=== PATIENT | female | born 1935 | race Caucasian/White ===

== ENCOUNTER 2018-04-19 03:32 | Emergency (ER) | payer MEDICARE ==
[~2018-04-19] VITALS: Ht 167.6 cm; Wt 84.0 kg
[~2018-04-19 03:32] MED LIST: ALBU6.7H INH; ASPI-1009 PO; CHOL100010 PO; ESOM20CA PO; GUAI600T45 PO; HYDR-3964 PF; LEVO50TA67 PO; NITR0.4T51 SL; OLME1TAB21 PO; POTASSIUM CHLORIDE PO; SULF-14 PO
[2018-04-19] MEDS ORDERED: normal saline 1000ML IV soln IVB ONE (03:50)
[2018-04-19] MEDS ORDERED: furosemide 10 MG/1 ML 10ml inj IV ONE (04:20)
[2018-04-19 04:27] LABS: BASOPHILS % (AUTO) 0.3 % (0-1); EOSINOPHILS # (AUTO) 0.2 X10'3 (0-0.9); EOSINOPHILS % (AUTO) 3.3 % (0-6); HEMATOCRIT 35.6 % (35.0-45.0); HEMOGLOBIN 12.4 g/dl (12.0-16.0); LYMPHOCYTES # (AUTO) 1.8 X10'3 (1.1-4.8); LYMPHOCYTES % (AUTO) 26.1 % (21-51); MEAN CORPUSCULAR HEMOGLOBIN 32.6 PG (27.0-31.0); MEAN CORPUSCULAR HGB CONC 34.8 % (33.0-36.5); MEAN CORPUSCULAR VOLUME 93.7 FL (78-98); MEAN PLATELET VOLUME 9.8 FL (7.4-10.4); MONOCYTES # (AUTO) 0.6 X10'3 (0-0.9); MONOCYTES % (AUTO) 7.9 % (2-12); NEUTROPHILS # (AUTO) 4.4 X10'3 (1.8-7.7); NEUTROPHILS % (AUTO) 62.4 % (42-75); PLATELET COUNT 198 X10'3 (140-440); RED CELL DISTRIBUTION WIDTH 13.2 % (11.5-14.5)
[2018-04-19 04:30] LABS: CLARITY,URINE CLEAR (Clear); COLOR,URINE YELLOW (Yellow); GLUCOSE, URINE NEGATIVE (Neg); KETONES,URINE TRACE mg/dl (Neg); LEUKOCYTE ESTERASE ,URINE NEGATIVE (Neg); NITRITES, URINE NEGATIVE (Neg); OCCULT BLOOD,URINE NEGATIVE (Neg); PH,URINE 6.5 (4.8-8.0); PROTEIN,URINE NEGATIVE (Neg); UROBILINOGEN,URINE 0.2 E.U/dL (0.2-1.0)
[2018-04-19 04:37] LABS: UA COLLECTION TYPE STRAIGHT CATH
[2018-04-19 04:43] LABS: ALANINE AMINOTRANSFERASE 19 U/L (12-78); ALBUMIN 3.5 G/DL (3.4-5.0); ALKALINE PHOSPHATASE 117 IU/L (46-116); ANION GAP 8 (8-16); ASPARTATE AMINO TRANSFERASE 14 U/L (10-37); BILIRUBIN,TOTAL 0.4 MG/DL (0.1-1.0); BLOOD UREA NITROGEN 25 MG/DL (7-18); BUN/CREATININE RATIO 27.5 (6.6-38.0); CALCIUM 9.1 MG/DL (8.5-10.1); CHLORIDE 105 MMOL/L (99-107); CREATININE 0.91 MG/DL (0.40-0.90); GLUCOSE 123 MG/DL (70-104); POTASSIUM 3.6 MMOL/L (3.5-5.1); SODIUM 140 MMOL/L (135-145); TOTAL CARBON DIOXIDE 26.7 MMOL/L (24-32); eGFR 59 ML/MIN
[2018-04-19 04:45] LABS: TROPONIN I < 0.04 NG/ML (0.0-0.05)
[2018-04-19 05:06] VITALS: BP 157/69
== END 2018-04-19 06:15 | disposition home or self-care (01) ==
LOC: ER 03:32
DX: R53.1 Weakness (principal); R41.0 Disorientation, unspecified; R10.12 Left upper quadrant pain; K59.00 Constipation, unspecified; H92.02 Otalgia, left ear; I10 Essential (primary) hypertension; K21.9 Gastro-esophageal reflux disease without esophagitis; E11.9 Type 2 diabetes mellitus without complications; Z85.038 Personal history of other malignant neoplasm of large intestine; Z90.710 Acquired absence of both cervix and uterus; Z90.49 Acquired absence of other specified parts of digestive tract; Z98.890 Other specified postprocedural states; Z60.2 Problems related to living alone; Z88.8 Allergy status to other drugs, medicaments and biological substances; Z79.82 Long term (current) use of aspirin; Z79.899 Other long term (current) drug therapy
CPT/HCPCS: 36415; 71045; 80053; 81003; 84484; 85025; 93005; 96360; 99285; A4353; J7030

== ENCOUNTER 2018-04-28 08:40 | Emergency (ER) | payer MEDICARE ==
[~2018-04-28] VITALS: Ht 167.6 cm; Wt 81.8 kg
[2018-04-28] MEDS ORDERED: normal saline 1000ML IV soln IVB ONE (09:15)
[2018-04-28] MEDS ORDERED: ondansetron/PF 4mg/2ml inj IV ONE (09:15)
[2018-04-28 09:20] LABS: BASOPHILS % (AUTO) 0.4 % (0-1); EOSINOPHILS # (AUTO) 0.1 X10'3 (0-0.9); EOSINOPHILS % (AUTO) 1.8 % (0-6); HEMATOCRIT 38.1 % (35.0-45.0); HEMOGLOBIN 13.2 g/dl (12.0-16.0); LYMPHOCYTES # (AUTO) 1.2 X10'3 (1.1-4.8); LYMPHOCYTES % (AUTO) 19.8 % (21-51); MEAN CORPUSCULAR HEMOGLOBIN 32.3 PG (27.0-31.0); MEAN CORPUSCULAR HGB CONC 34.7 % (33.0-36.5); MEAN CORPUSCULAR VOLUME 93.2 FL (78-98); MEAN PLATELET VOLUME 9.8 FL (7.4-10.4); MONOCYTES # (AUTO) 0.4 X10'3 (0-0.9); MONOCYTES % (AUTO) 6.8 % (2-12); NEUTROPHILS # (AUTO) 4.2 X10'3 (1.8-7.7); NEUTROPHILS % (AUTO) 71.2 % (42-75); PLATELET COUNT 197 X10'3 (140-440); RED BLOOD COUNT 4.09 X10'6 (4.20-5.60); RED CELL DISTRIBUTION WIDTH 13.1 % (11.5-14.5)
[2018-04-28 09:31] LABS: ALANINE AMINOTRANSFERASE 18 U/L (12-78); ALBUMIN 3.6 G/DL (3.4-5.0); ALBUMIN/GLOBULIN RATIO 0.8 (1.1-1.5); ALKALINE PHOSPHATASE 121 IU/L (46-116); ANION GAP 13 (8-16); ASPARTATE AMINO TRANSFERASE 15 U/L (10-37); BILIRUBIN,TOTAL 0.7 MG/DL (0.1-1.0); BLOOD UREA NITROGEN 18 MG/DL (7-18); BUN/CREATININE RATIO 18.4 (6.6-38.0); CHLORIDE 102 MMOL/L (99-107); CREATININE 0.98 MG/DL (0.40-0.90); GLUCOSE 149 MG/DL (70-104); LIPASE 124 U/L (73-393); POTASSIUM 3.5 MMOL/L (3.5-5.1); SODIUM 140 MMOL/L (135-145); TOTAL CARBON DIOXIDE 25.1 MMOL/L (24-32); eGFR 54 ML/MIN
[2018-04-28 09:35] LABS: CALCIUM 9.1 MG/DL (8.5-10.1)
[2018-04-28] MEDS ORDERED: iohexol 350MG/ML 100ml bottle IV ONE (09:54)
[2018-04-28 09:57] LABS: CLARITY,URINE SLIGHTLY CLOUDY (Clear); COLOR,URINE STRAW (Yellow); GLUCOSE, URINE NEGATIVE (Neg); KETONES,URINE TRACE mg/dl (Neg); LEUKOCYTE ESTERASE ,URINE TRACE (Neg); NITRITES, URINE NEGATIVE (Neg); OCCULT BLOOD,URINE TRACE-LYSED (Neg); PROTEIN,URINE NEGATIVE (Neg); UROBILINOGEN,URINE 0.2 E.U/dL (0.2-1.0)
[2018-04-28 10:03] LABS: UA COLLECTION TYPE CLN CATCH MIDSTREAM
[2018-04-28 10:05] LABS: BACTERIA,URINE FEW /HPF (Neg); RBC,URINE 0-2 /HPF (0-2); SQUAMOUS EPITHELIAL CELL,UR MODERATE /LPF (FEW)
[2018-04-28] MEDS ORDERED: POLY17PO10 PO (11:54)
[2018-04-28 12:52] VITALS: BP 128/78
== END 2018-04-28 12:53 | disposition home or self-care (01) ==
LOC: ER 08:41
DX: G89.29 Other chronic pain (principal); R10.84 Generalized abdominal pain; R11.10 Vomiting, unspecified; R63.4 Abnormal weight loss; I10 Essential (primary) hypertension; K21.9 Gastro-esophageal reflux disease without esophagitis; E11.9 Type 2 diabetes mellitus without complications; Z90.710 Acquired absence of both cervix and uterus; Z90.49 Acquired absence of other specified parts of digestive tract; Z98.890 Other specified postprocedural states; Z60.2 Problems related to living alone; Z85.038 Personal history of other malignant neoplasm of large intestine; Z88.6 Allergy status to analgesic agent; Z79.82 Long term (current) use of aspirin; Z79.899 Other long term (current) drug therapy; Z68.29 Body mass index [BMI] 29.0-29.9, adult
CPT/HCPCS: 36415; 80053; 81001; 83690; 85025; 87088; 96361; 96374; 99284; J2405; J7030; Q9967

== ENCOUNTER 2018-06-10 08:45 | Inpatient (IN) | payer MEDICARE ==
[2018-06-10] VITALS (11 sets, daily range): BP systolic 113–149; BP diastolic 54–77
[~2018-06-10] VITALS: Ht 167.6 cm; Wt 85.0 kg
[~2018-06-10 08:45] MED LIST changes: -ALBU6.7H INH; -CHOL100010 PO; -ESOM20CA PO; -GUAI600T45 PO; -LEVO50TA67 PO; -POTASSIUM CHLORIDE PO; -SULF-14 PO
[2018-06-10] MEDS ORDERED: aspirin 81mg tab.chew PO ONE (09:00)
[2018-06-10 09:25] LABS: BASOPHILS % (AUTO) 0.2 % (0-1); EOSINOPHILS # (AUTO) 0.1 X10'3 (0-0.9); EOSINOPHILS % (AUTO) 2.4 % (0-6); HEMATOCRIT 35.9 % (35.0-45.0); HEMOGLOBIN 12.3 g/dl (12.0-16.0); LYMPHOCYTES # (AUTO) 1.6 X10'3 (1.1-4.8); MEAN CORPUSCULAR HEMOGLOBIN 32.3 PG (27.0-31.0); MEAN CORPUSCULAR HGB CONC 34.3 % (33.0-36.5); MEAN CORPUSCULAR VOLUME 94.2 FL (78-98); MEAN PLATELET VOLUME 9.3 FL (7.4-10.4); MONOCYTES # (AUTO) 0.4 X10'3 (0-0.9); MONOCYTES % (AUTO) 7.9 % (2-12); NEUTROPHILS % (AUTO) 58.5 % (42-75); PLATELET COUNT 215 X10'3 (140-440); RED BLOOD COUNT 3.82 X10'6 (4.20-5.60); RED CELL DISTRIBUTION WIDTH 13.3 % (11.5-14.5); WHITE BLOOD COUNT 5.1 X10'3 (4.5-11.0)
[2018-06-10 09:40] LABS: ALANINE AMINOTRANSFERASE 17 U/L (12-78); ALBUMIN 3.3 G/DL (3.4-5.0); ALBUMIN/GLOBULIN RATIO 0.9 (1.1-1.5); ALKALINE PHOSPHATASE 113 IU/L (46-116); ANION GAP 10 (8-16); ASPARTATE AMINO TRANSFERASE 18 U/L (10-37); BILIRUBIN,TOTAL 0.5 MG/DL (0.1-1.0); BLOOD UREA NITROGEN 22 MG/DL (7-18); BUN/CREATININE RATIO 27.5 (6.6-38.0); CALCIUM 8.6 MG/DL (8.5-10.1); CHLORIDE 105 MMOL/L (99-107); GLUCOSE 138 MG/DL (70-104); POTASSIUM 3.8 MMOL/L (3.5-5.1); SODIUM 142 MMOL/L (135-145); TOTAL CARBON DIOXIDE 26.7 MMOL/L (24-32); TOTAL PROTEIN 6.8 G/DL (6.4-8.2); eGFR 68 ML/MIN
[2018-06-10 09:48] LABS: MAGNESIUM 1.9 MG/DL (1.5-2.4)
[2018-06-10] MEDS ORDERED: magnesium hydroxide 30ml (MOM) UD suspension PO PRN (10:55)
[2018-06-10] MEDS ORDERED: ondansetron/PF 4mg/2ml inj IV PRN (10:55)
[2018-06-10] MEDS ORDERED: morphine 2 MG/ML inj. syringe IV PRN ×2 (10:55)
[2018-06-10] MEDS ORDERED: acetaminophen 325mg tablet PO PRN (10:55)
[2018-06-10] MEDS ORDERED: mag hydrox/Alum hydrox/simeth 30ml oral suspension PO PRN (10:55)
[2018-06-10] MEDS: normal saline 1000ml 1,000 ML IV SCH ×2 (11:16→20:52)
[2018-06-10] MEDS ORDERED: LOSA25TA96 PO (11:20)
[2018-06-10] MEDS ORDERED: TRAM50TA2 PO (11:21)
[2018-06-10] MEDS ORDERED: traMADol 50MG tablet PO PRN (12:15)
[2018-06-10] MEDS ORDERED: nitroGLYCERIN 0.4mg SUBLingual tab SL PRN (12:15)
[2018-06-10] MEDS ORDERED: hydrALAZINE 20mg/ml inj. IV PRN (14:55)
[2018-06-10] MEDS ORDERED: LIDOcaine 1% 30ml preserv. free vial ONE (16:09)
[2018-06-10] MEDS ORDERED: iohexol 350MG/ML 100ml bottle IV ONE (16:10)
[2018-06-10] MEDS ORDERED: midazolam 2 mg/2 ml injection ONE (16:38)
[2018-06-10] MEDS ORDERED: proCHLORperazine 10 MG/2 ml inj IV PRN (18:00)
[2018-06-10] MEDS ORDERED: OXAZEpam 15mg capsule PO PRN (18:00)
[2018-06-10] MEDS ORDERED: normal saline 1000ml 1,000 ML IV SCH (18:00)
[2018-06-10] MEDS ORDERED: heparin, porcine 5000 units/ml vial SQ SCH (20:00)
[2018-06-10] MEDS: carVEDilol 3.125mg tablet PO SCH (22:03)
[2018-06-11 03:00] VITALS: BP 134/66
[2018-06-11 05:30] LABS: BASOPHILS % (AUTO) 0.5 % (0-1); EOSINOPHILS # (AUTO) 0.2 X10'3 (0-0.9); EOSINOPHILS % (AUTO) 3.9 % (0-6); HEMATOCRIT 35.1 % (35.0-45.0); HEMOGLOBIN 12.1 g/dl (12.0-16.0); LYMPHOCYTES # (AUTO) 1.4 X10'3 (1.1-4.8); LYMPHOCYTES % (AUTO) 22.6 % (21-51); MEAN CORPUSCULAR HEMOGLOBIN 32.4 PG (27.0-31.0); MEAN CORPUSCULAR HGB CONC 34.4 % (33.0-36.5); MEAN CORPUSCULAR VOLUME 94.3 FL (78-98); MEAN PLATELET VOLUME 10.3 FL (7.4-10.4); MONOCYTES # (AUTO) 0.5 X10'3 (0-0.9); MONOCYTES % (AUTO) 8.4 % (2-12); NEUTROPHILS # (AUTO) 4.1 X10'3 (1.8-7.7); NEUTROPHILS % (AUTO) 64.6 % (42-75); PLATELET COUNT 202 X10'3 (140-440); RED BLOOD COUNT 3.72 X10'6 (4.20-5.60); RED CELL DISTRIBUTION WIDTH 13.4 % (11.5-14.5); WHITE BLOOD COUNT 6.4 X10'3 (4.5-11.0)
[2018-06-11 06:00] VITALS: BP 145/72
[2018-06-11 06:05] LABS: ALBUMIN 3.1 G/DL (3.4-5.0); ANION GAP 9 (8-16); BLOOD UREA NITROGEN 24 MG/DL (7-18); BUN/CREATININE RATIO 32.4 (6.6-38.0); CALCIUM 8.4 MG/DL (8.5-10.1); CHLORIDE 106 MMOL/L (99-107); CHOL/HDL RATIO 1.9 (0.00-4.99); CHOLESTEROL 168 MG/DL (0-200); CREATININE 0.74 MG/DL (0.40-0.90); GLUCOSE 105 MG/DL (70-104); HDL CHOLESTEROL 88 MG/DL (35-60); LDL CHOLESTEROL 81 MG/DL (50-100); SODIUM 141 MMOL/L (135-145); TOTAL CARBON DIOXIDE 25.7 MMOL/L (24-32); TRIGLYCERIDES 66 MG/DL (20-135); eGFR 75 ML/MIN
[2018-06-11 06:06] LABS: POTASSIUM 4.1 MMOL/L (3.5-5.1)
[2018-06-11] MEDS: carVEDilol 3.125mg tablet PO SCH (07:51)
[2018-06-11] MEDS ORDERED: aspirin 81mg tablet.DR PO SCH (08:00)
[2018-06-11] MEDS ORDERED: losartan 50mg tablet PO SCH (08:00)
[2018-06-11] MEDS ORDERED: atorvastatin 20mg tablet PO SCH (08:00)
[2018-06-11 11:00] VITALS: BP 153/77
[2018-06-11] MEDS ORDERED: PANT-47 PO (13:19)
== END 2018-06-11 14:00 | disposition home or self-care (01) | DRG 287 ==
LOC: ER 08:46 → ED HOLD 10:52 → PCU 3S 16:25
PROVIDERS: ADMIT Family Medicine; ATTEND Family Medicine
PROC: 4A023N7 Measurement of Cardiac Sampling and Pressure, Left Heart, Percutaneous Approach (ICD-10-PCS; principal; 2018-06-10)
PROC: B2111ZZ Fluoroscopy of Multiple Coronary Arteries using Low Osmolar Contrast (ICD-10-PCS; 2018-06-10)
PROC: B2151ZZ Fluoroscopy of Left Heart using Low Osmolar Contrast (ICD-10-PCS; 2018-06-10)
DX: I25.110 Atherosclerotic heart disease of native coronary artery with unstable angina pectoris (principal); E03.9 Hypothyroidism, unspecified; E11.22 Type 2 diabetes mellitus with diabetic chronic kidney disease; E78.5 Hyperlipidemia, unspecified; I12.9 Hypertensive chronic kidney disease with stage 1 through stage 4 chronic kidney disease, or unspecified chronic kidney disease; K21.9 Gastro-esophageal reflux disease without esophagitis; N18.9 Chronic kidney disease, unspecified; Z60.2 Problems related to living alone; Z90.49 Acquired absence of other specified parts of digestive tract; Z91.041 Radiographic dye allergy status; Z88.8 Allergy status to other drugs, medicaments and biological substances; Z85.038 Personal history of other malignant neoplasm of large intestine; Z87.440 Personal history of urinary (tract) infections; Z90.710 Acquired absence of both cervix and uterus
CPT/HCPCS: 36415; 71045; 80048; 80053; 80061; 83735; 83880; 84484; 85025; 87070; 93005; 93306; 93458; 99152; 99153; 99283; 99285; A4620; A6257; C1769; J0360; J1644; J2250; J3490; J7030; Q9967

== ENCOUNTER 2018-06-21 09:59 | Emergency (ER) | payer MEDICARE ==
[~2018-06-21] VITALS: Ht 167.6 cm; Wt 81.0 kg
[~2018-06-21 09:59] MED LIST changes: -HYDR-3964 PF; +LOSA25TA96 PO; -OLME1TAB21 PO; +PANT-47 PO; +TRAM50TA2 PO
[2018-06-21] MEDS ORDERED: sucralfate 1gm/10ml UD suspension PO ONE (10:15)
[2018-06-21] MEDS ORDERED: mag hydrox/Alum hydrox/simeth 30ml oral suspension PO ONE (10:15)
[2018-06-21] MEDS ORDERED: LIDOcaine Viscous 15ml cup MM PRN (10:15)
[2018-06-21] MEDS ORDERED: pantoprazole 40 MG vial IV ONE (10:20)
[2018-06-21] MEDS ORDERED: famotidine/PF 10 mg/ml inj IV ONE (10:20)
[2018-06-21 10:27] LABS: BASOPHILS % (AUTO) 0.3 % (0-1); EOSINOPHILS # (AUTO) 0.1 X10'3 (0-0.9); EOSINOPHILS % (AUTO) 1.2 % (0-6); HEMATOCRIT 37.1 % (35.0-45.0); HEMOGLOBIN 12.8 g/dl (12.0-16.0); LYMPHOCYTES # (AUTO) 1.3 X10'3 (1.1-4.8); LYMPHOCYTES % (AUTO) 24.4 % (21-51); MEAN CORPUSCULAR HEMOGLOBIN 32.5 PG (27.0-31.0); MEAN CORPUSCULAR HGB CONC 34.4 % (33.0-36.5); MEAN CORPUSCULAR VOLUME 94.4 FL (78-98); MEAN PLATELET VOLUME 9.1 FL (7.4-10.4); MONOCYTES # (AUTO) 0.4 X10'3 (0-0.9); MONOCYTES % (AUTO) 7.6 % (2-12); NEUTROPHILS # (AUTO) 3.5 X10'3 (1.8-7.7); NEUTROPHILS % (AUTO) 66.5 % (42-75); PLATELET COUNT 233 X10'3 (140-440); RED BLOOD COUNT 3.93 X10'6 (4.20-5.60); WHITE BLOOD COUNT 5.2 X10'3 (4.5-11.0)
[2018-06-21 10:41] LABS: ALANINE AMINOTRANSFERASE 21 U/L (12-78); ALBUMIN 3.6 G/DL (3.4-5.0); ALKALINE PHOSPHATASE 118 IU/L (46-116); ANION GAP 14 (8-16); ASPARTATE AMINO TRANSFERASE 18 U/L (10-37); BILIRUBIN,TOTAL 0.6 MG/DL (0.1-1.0); BLOOD UREA NITROGEN 23 MG/DL (7-18); BUN/CREATININE RATIO 27.4 (6.6-38.0); CALCIUM 8.8 MG/DL (8.5-10.1); CHLORIDE 104 MMOL/L (99-107); CREATININE 0.84 MG/DL (0.40-0.90); GLUCOSE 128 MG/DL (70-104); LIPASE 139 U/L (73-393); POTASSIUM 3.6 MMOL/L (3.5-5.1); SODIUM 143 MMOL/L (135-145); TOTAL CARBON DIOXIDE 25.4 MMOL/L (24-32); TOTAL PROTEIN 7.2 G/DL (6.4-8.2); eGFR 65 ML/MIN
[2018-06-21] MEDS ORDERED: ondansetron/PF 4mg/2ml inj IV ONE (11:10)
[2018-06-21] MEDS ORDERED: normal saline 1000ML IV soln IVB ONE (11:10)
[2018-06-21] MEDS ORDERED: diatrozoate meglu/diatrozoate sod (37% iodine) 120ML oral solution PO ONE (11:45)
[2018-06-21] MEDS: diatr meglu/diatrizoate 30ml oral sol.-(3 dose) bottle PO SCH ×3 (12:03→13:37)
[2018-06-21 14:16] VITALS: BP 92/73
== END 2018-06-21 16:45 | disposition home or self-care (01) ==
LOC: ER 09:59
DX: R10.32 Left lower quadrant pain (principal); R10.84 Generalized abdominal pain; I10 Essential (primary) hypertension; K21.9 Gastro-esophageal reflux disease without esophagitis; E11.9 Type 2 diabetes mellitus without complications; Z90.710 Acquired absence of both cervix and uterus; Z98.890 Other specified postprocedural states; Z90.49 Acquired absence of other specified parts of digestive tract; Z85.038 Personal history of other malignant neoplasm of large intestine; Z79.82 Long term (current) use of aspirin; Z79.899 Other long term (current) drug therapy
CPT/HCPCS: 36415; 71045; 74176; 80053; 83605; 83690; 84484; 85025; 93005; 96374; 96375; 99285; C9113; J3490; Q9963

== ENCOUNTER 2018-06-26 08:36 | Observation (INO) | payer MEDICARE ==
[~2018-06-26] VITALS: Ht 167.6 cm; Wt 78.9 kg
[2018-06-26 09:22] LABS: BASOPHILS % (AUTO) 0.4 % (0-1); EOSINOPHILS # (AUTO) 0.1 X10'3 (0-0.9); EOSINOPHILS % (AUTO) 2.1 % (0-6); HEMATOCRIT 36.3 % (35.0-45.0); HEMOGLOBIN 12.7 g/dl (12.0-16.0); LYMPHOCYTES # (AUTO) 1.2 X10'3 (1.1-4.8); LYMPHOCYTES % (AUTO) 19.6 % (21-51); MEAN CORPUSCULAR HGB CONC 34.9 % (33.0-36.5); MEAN CORPUSCULAR VOLUME 94.4 FL (78-98); MEAN PLATELET VOLUME 9.7 FL (7.4-10.4); MONOCYTES # (AUTO) 0.4 X10'3 (0-0.9); MONOCYTES % (AUTO) 6.6 % (2-12); NEUTROPHILS # (AUTO) 4.4 X10'3 (1.8-7.7); NEUTROPHILS % (AUTO) 71.3 % (42-75); PLATELET COUNT 202 X10'3 (140-440); RED BLOOD COUNT 3.85 X10'6 (4.20-5.60); RED CELL DISTRIBUTION WIDTH 12.4 % (11.5-14.5); WHITE BLOOD COUNT 6.1 X10'3 (4.5-11.0)
[2018-06-26 09:27] LABS: PARTIAL THROMBOPLASTIN TIME 23 SECONDS (22-32); PROTHROMBIN TIME 10.4 SECONDS (9.0-12.0)
[2018-06-26 09:32] LABS: ALANINE AMINOTRANSFERASE 19 U/L (12-78); ALBUMIN 3.4 G/DL (3.4-5.0); ALKALINE PHOSPHATASE 119 IU/L (46-116); ANION GAP 12 (8-16); ASPARTATE AMINO TRANSFERASE 15 U/L (10-37); BILIRUBIN,TOTAL 0.6 MG/DL (0.1-1.0); BLOOD UREA NITROGEN 23 MG/DL (7-18); BUN/CREATININE RATIO 25.6 (6.6-38.0); CALCIUM 8.7 MG/DL (8.5-10.1); CHLORIDE 105 MMOL/L (99-107); GLUCOSE 131 MG/DL (70-104); POTASSIUM 3.6 MMOL/L (3.5-5.1); SODIUM 142 MMOL/L (135-145); TOTAL CARBON DIOXIDE 24.9 MMOL/L (24-32); TOTAL PROTEIN 6.9 G/DL (6.4-8.2); eGFR 60 ML/MIN
[2018-06-26 10:35] LABS: CLARITY,URINE CLOUDY (Clear); COLOR,URINE YELLOW (Yellow); GLUCOSE, URINE NEGATIVE (Neg); KETONES,URINE NEGATIVE (Neg); LEUKOCYTE ESTERASE ,URINE SMALL (Neg); NITRITES, URINE NEGATIVE (Neg); OCCULT BLOOD,URINE TRACE-INTACT (Neg); PH,URINE 6.5 (4.8-8.0); PROTEIN,URINE NEGATIVE (Neg); UA COLLECTION TYPE CLN CATCH MIDSTREAM; UROBILINOGEN,URINE 0.2 E.U/dL (0.2-1.0)
[2018-06-26 10:41] LABS: BACTERIA,URINE 3+ /HPF (Neg); MUCUS STRANDS NONE SEEN /LPF (Neg); RBC,URINE 0-2 /HPF (0-2); SQUAMOUS EPITHELIAL CELL,UR MODERATE /LPF (FEW); WBC,URINE 20-30 /HPF (0-4)
[2018-06-26] MEDS ORDERED: losartan 25mg tablet PO SCH (11:55)
[2018-06-26] MEDS ORDERED: potassium Cl 20 mEq SR tablet PO PRN ×2 (12:50)
[2018-06-26] MEDS ORDERED: mag hydrox/Alum hydrox/simeth 30ml oral suspension PO PRN (12:50)
[2018-06-26] MEDS ORDERED: bisacodyl 10mg suppository rectal RC PRN (12:50)
[2018-06-26] MEDS ORDERED: ondansetron/PF 4mg/2ml inj IV PRN (12:50)
[2018-06-26] MEDS ORDERED: magnesium Cl slow-release 64mg tablet PO PRN (12:50)
[2018-06-26] MEDS ORDERED: magnesium 4gm in 100ml NS 100 ML IV PRN (12:50)
[2018-06-26] MEDS ORDERED: acetaminophen 325mg tablet PO PRN ×2 (12:50)
[2018-06-26] MEDS ORDERED: magnesium 1gm/100ml D5W IVPB 100 ML IV PRN (12:50)
[2018-06-26] MEDS ORDERED: potassium Cl 40MEQ/NS 500ml 500 ML IV PRN ×2 (12:50)
[2018-06-26] MEDS ORDERED: magnesium hydroxide 30ml (MOM) UD suspension PO PRN (12:50)
[2018-06-26 13:50] VITALS: BP 215/80
[2018-06-26] MEDS ORDERED: hydrALAZINE 20mg/ml inj. IV ONE (14:25)
[2018-06-26] MEDS ORDERED: hydrALAZINE 20mg/ml inj. IV PRN (14:25)
[2018-06-26] MEDS ORDERED: hyDRALAzine 10mg tablet PO PRN (14:25)
[2018-06-26] MEDS ORDERED: hyDRALAzine 10mg tablet PO SCH (14:25)
[2018-06-26] MEDS: normal saline 1000ml 1,000 ML IV SCH ×2 (15:01→22:49)
[2018-06-26] MEDS ORDERED: enalaprilat dihydrate 2.5mg/2ml vial IV ONE (16:20)
[2018-06-26] MEDS ORDERED: enalaprilat dihydrate 2.5mg/2ml vial IV PRN (17:35)
[2018-06-26 18:00] VITALS: BP 119/55
[2018-06-26] MEDS: famotidine 20mg tablet PO SCH (19:31)
[2018-06-26] MEDS: heparin, porcine 5000 units/ml vial SQ SCH (19:32)
[2018-06-26] MEDS: docusate sod 100mg capsule PO SCH (19:32)
[2018-06-26 22:00] VITALS: BP 144/68
[2018-06-26] MEDS: CefTRIAXone/D5W-Rocephin 1gm 50 ML IV SCH (23:53)
[2018-06-27 02:00] VITALS: BP 110/65
[2018-06-27 06:00] VITALS: BP 99/60
[2018-06-27] MEDS: HYDROcodone/acetaminophen 5mg/325mg tablet PO PRN (06:44)
[2018-06-27 07:52] LABS: BASOPHILS % (AUTO) 0.5 % (0-1); EOSINOPHILS # (AUTO) 0.2 X10'3 (0-0.9); EOSINOPHILS % (AUTO) 1.9 % (0-6); HEMATOCRIT 33.5 % (35.0-45.0); HEMOGLOBIN 11.9 g/dl (12.0-16.0); LYMPHOCYTES # (AUTO) 1.3 X10'3 (1.1-4.8); LYMPHOCYTES % (AUTO) 16.5 % (21-51); MEAN CORPUSCULAR HEMOGLOBIN 33.6 PG (27.0-31.0); MEAN CORPUSCULAR HGB CONC 35.5 % (33.0-36.5); MEAN CORPUSCULAR VOLUME 94.5 FL (78-98); MEAN PLATELET VOLUME 10.2 FL (7.4-10.4); MONOCYTES # (AUTO) 0.5 X10'3 (0-0.9); MONOCYTES % (AUTO) 5.8 % (2-12); NEUTROPHILS # (AUTO) 6.1 X10'3 (1.8-7.7); NEUTROPHILS % (AUTO) 75.3 % (42-75); PLATELET COUNT 185 X10'3 (140-440); RED BLOOD COUNT 3.54 X10'6 (4.20-5.60); RED CELL DISTRIBUTION WIDTH 12.1 % (11.5-14.5); WHITE BLOOD COUNT 8.1 X10'3 (4.5-11.0)
[2018-06-27] MEDS: K and/or MAG REPLACEMENT MC SCH (08:00)
[2018-06-27 08:13] LABS: ALBUMIN 3.1 G/DL (3.4-5.0); ANION GAP 9 (8-16); BLOOD UREA NITROGEN 23 MG/DL (7-18); BUN/CREATININE RATIO 25.8 (6.6-38.0); CALCIUM 8.6 MG/DL (8.5-10.1); CHLORIDE 108 MMOL/L (99-107); CREATININE 0.89 MG/DL (0.40-0.90); GLUCOSE 114 MG/DL (70-104); MAGNESIUM 1.9 MG/DL (1.5-2.4); POTASSIUM 3.6 MMOL/L (3.5-5.1); SODIUM 143 MMOL/L (135-145); TOTAL CARBON DIOXIDE 26.1 MMOL/L (24-32); eGFR 60 ML/MIN
[2018-06-27] MEDS: heparin, porcine 5000 units/ml vial SQ SCH ×2 (09:08→20:08)
[2018-06-27] MEDS: losartan 50mg tablet PO SCH (09:09)
[2018-06-27] MEDS: CefTRIAXone/D5W-Rocephin 1gm 50 ML IV SCH (09:09)
[2018-06-27] MEDS: docusate sod 100mg capsule PO SCH ×2 (09:09→20:07)
[2018-06-27] MEDS: famotidine 20mg tablet PO SCH (09:09)
[2018-06-27 11:00] VITALS: BP 143/66
[2018-06-27] MEDS: normal saline 1000ml 1,000 ML IV SCH ×2 (11:32→21:42)
[2018-06-27 15:00] VITALS: BP 147/64
[2018-06-27 19:00] VITALS: BP 186/73
[2018-06-27] MEDS: lactobacillus rhamnosus 10,000 MMU CELLS/CAPSULE PO SCH (20:07)
[2018-06-28] VITALS: BP 169/74
[2018-06-28 03:00] VITALS: BP 159/65
[2018-06-28] MEDS: normal saline 1000ml 1,000 ML IV SCH ×2 (04:49→08:57)
[2018-06-28 06:36] LABS: BASOPHILS % (AUTO) 0.5 % (0-1); EOSINOPHILS # (AUTO) 0.2 X10'3 (0-0.9); EOSINOPHILS % (AUTO) 4.5 % (0-6); HEMATOCRIT 32.3 % (35.0-45.0); HEMOGLOBIN 11.6 g/dl (12.0-16.0); LYMPHOCYTES # (AUTO) 1.4 X10'3 (1.1-4.8); LYMPHOCYTES % (AUTO) 29.7 % (21-51); MEAN CORPUSCULAR HEMOGLOBIN 33.7 PG (27.0-31.0); MEAN CORPUSCULAR HGB CONC 35.8 % (33.0-36.5); MEAN PLATELET VOLUME 9.5 FL (7.4-10.4); MONOCYTES # (AUTO) 0.4 X10'3 (0-0.9); NEUTROPHILS # (AUTO) 2.8 X10'3 (1.8-7.7); NEUTROPHILS % (AUTO) 56.3 % (42-75); PLATELET COUNT 179 X10'3 (140-440); RED BLOOD COUNT 3.44 X10'6 (4.20-5.60); RED CELL DISTRIBUTION WIDTH 12.3 % (11.5-14.5); WHITE BLOOD COUNT 4.8 X10'3 (4.5-11.0)
[2018-06-28 06:55] LABS: ALBUMIN 2.9 G/DL (3.4-5.0); ANION GAP 8 (8-16); BLOOD UREA NITROGEN 14 MG/DL (7-18); BUN/CREATININE RATIO 17.3 (6.6-38.0); CALCIUM 8.9 MG/DL (8.5-10.1); CHLORIDE 110 MMOL/L (99-107); CREATININE 0.81 MG/DL (0.40-0.90); GLUCOSE 114 MG/DL (70-104); MAGNESIUM 1.8 MG/DL (1.5-2.4); POTASSIUM 3.5 MMOL/L (3.5-5.1); SODIUM 145 MMOL/L (135-145); TOTAL CARBON DIOXIDE 26.9 MMOL/L (24-32); eGFR 67 ML/MIN
[2018-06-28 08:00] VITALS: BP 154/78
[2018-06-28] MEDS: K and/or MAG REPLACEMENT MC SCH (08:00)
[2018-06-28] MEDS: famotidine 20mg tablet PO SCH (08:56)
[2018-06-28] MEDS: CefTRIAXone/D5W-Rocephin 1gm 50 ML IV SCH (08:56)
[2018-06-28] MEDS: lactobacillus rhamnosus 10,000 MMU CELLS/CAPSULE PO SCH (08:56)
[2018-06-28] MEDS: docusate sod 100mg capsule PO SCH (08:56)
[2018-06-28] MEDS: HYDROcodone/acetaminophen 5mg/325mg tablet PO PRN (08:57)
[2018-06-28] MEDS: losartan 50mg tablet PO SCH (08:57)
[2018-06-28] MEDS: heparin, porcine 5000 units/ml vial SQ SCH (08:58)
[2018-06-28 11:48] VITALS: BP 147/69
[2018-06-28] MEDS ORDERED: LACT1CAP26 PO (12:33)
[2018-06-28] MEDS ORDERED: FAMO20TA8 PO (12:33)
[2018-06-28] MEDS ORDERED: SULF1TAB49 PO (12:33)
== END 2018-06-28 15:12 | disposition home or self-care (01) ==
LOC: ER 08:36 → ED HOLD 12:49 → PCU 3S 13:50 → SUR 3N 06-27 16:01
PROVIDERS: ADMIT Hospitalist; ATTEND Hospitalist
DX: N39.0 Urinary tract infection, site not specified (principal); I12.9 Hypertensive chronic kidney disease with stage 1 through stage 4 chronic kidney disease, or unspecified chronic kidney disease; E11.22 Type 2 diabetes mellitus with diabetic chronic kidney disease; N18.9 Chronic kidney disease, unspecified; E78.5 Hyperlipidemia, unspecified; Z85.038 Personal history of other malignant neoplasm of large intestine
CPT/HCPCS: 36415; 71045; 80048; 80053; 81001; 83735; 84443; 84484; 85025; 85610; 85730; 87070; 87077; 87088; 87186; 93005; 96365; 96366; 96372; 96375; 96376; 99285; G0378; J0360; J0696; J1644; J7030